=== PATIENT | male | born 1960 | race Caucasian/White ===

== ENCOUNTER 2017-06-19 16:26 | Emergency (ER) | payer MEDICARE, MEDICAID ==
[~2017-06-19] VITALS: Ht 177.8 cm; Wt 50.0 kg
[2017-06-19 16:36] VITALS: BP 110/60
== END 2017-06-19 17:31 | disposition left against medical advice (07) ==
LOC: EMS 16:29
DX: R10.9 Unspecified abdominal pain (principal)
CPT/HCPCS: 99283; 99284